=== PATIENT | female | born 1980 | race Caucasian/White ===

== ENCOUNTER 2016-09-04 02:13 | Emergency (ER) | payer OTHER ==
[2016-09-04] MEDS ORDERED: ORPHENADRINE 30 MG/ML 2 ML VIAL IM STA (02:18)
[2016-09-04] MEDS ORDERED: KETOROLAC 60 MG/2 ML VIAL IM STA (02:18)
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
--- NOTE | 2016-09-04 02:39 | XR ---
EXAMINATION TYPE: XR lumbar spine 2 or 3V DATE OF EXAM: 09/04/2016 2:29 AM CLINICAL HISTORY: Lower back pain TECHNIQUE: Frontal and lateral 3 radiographs of lumbar spine were obtained. COMPARISON: MRI lumbar spine 03/11/2011 FINDINGS: There is minor S-shaped scoliosis in the thoracolumbar spine. There is straightening of normal lumbar lordosis. The alignment of vertebral bodies and body heights are grossly normal. Mild facet joint ar throsis is noted. No definite acute fracture is noted in the lumbar spine. IMPRESSION: No acute fracture or dislocation is seen in the lumbar spine. Minor degenerative changes in the lumbar spine.
[2016-09-04 03:00] VITALS: BP 132/87; PULSE 89; RESP 18; TEMP 97.7
== END 2016-09-04 02:59 | disposition home or self-care (01) ==
LOC: EC 02:13
DX: S39.012A Strain of muscle, fascia and tendon of lower back, initial encounter (principal); W06.XXXA Fall from bed, initial encounter; Y92.003 Bedroom of unspecified non-institutional (private) residence as the place of occurrence of the external cause
CPT/HCPCS: 96372 ×2; 99283; 72100; J2360; J1885